=== PATIENT | female | born 1970 | race Caucasian/White ===

== ENCOUNTER 2019-04-22 08:57 | Emergency (ER) | payer OTHER ==
[~2019-04-22] VITALS: Ht 157.5 cm; Wt 49.0 kg
[2019-04-22] MEDS ORDERED: PROTONIX40 MG PO (09:03)
[2019-04-22] MEDS ORDERED: LEVSIN0.125 MG PO (09:03)
[2019-04-22] MEDS ORDERED: ZEGERID 20 MG1 EACH PO (15:10)
== END 2019-04-22 15:43 | disposition home or self-care (01) ==
LOC: ER 08:57
DX: K29.70 Gastritis, unspecified, without bleeding (principal)